=== PATIENT | male | born 1980 | race Caucasian/White ===

== ENCOUNTER 2020-06-19 04:12 | Emergency (ER) | payer OTHER ==
[2020-06-19 04:34] LABS: GLUCOSE, URINE (UA) NEGATIVE (NEGATIVE); KETONES,URINE (UA) NEGATIVE (NEGATIVE); LEUKOCYTE ESTERASE, URINE NEGATIVE (NEGATIVE); NITRITE,URINE NEGATIVE (NEGATIVE); OCCULT BLOOD,URINE LARGE (NEGATIVE); PH,URINE 5.5 PH (5.0-7.5); PROTEIN,URINE 100 mg/dL (NEGATIVE); UROBILINOGEN,URINE 1 (NORMAL) E.U./dL (NORMAL)
[2020-06-19 04:35] LABS: BASOPHILS % (AUTO) 0.4 %; EOSINOPHILS # (AUTO) 0.3 10^3/uL (0.0-0.7); EOSINOPHILS % (AUTO) 2.6 %; HCT - HEMATOCRIT 47.8 % (42.0-52.0); HGB - HEMOGLOBIN 15.9 g/dL (14.0-18.0); LYMPHOCYTES # (AUTO) 3.1 10^3/uL (1.5-3.5); LYMPHOCYTES % (AUTO) 31.2 %; MEAN CORPUSCULAR HGB CONC 33.3 g/dL (32.0-36.0); MEAN CORPUSCULAR VOLUME 87.1 fL (80.0-94.0); MEAN PLATELET VOLUME 9.5 fL (7.4-11.4); MONOCYTES # (AUTO) 1.1 10^3/uL (0.0-1.0); NEUTROPHILS # (AUTO) 5.4 10^3/uL (1.5-6.6); NEUTROPHILS % (AUTO) 54.5 %; PLT - PLATELET COUNT 355 10^3/uL (130-450); RED BLOOD COUNT 5.49 10^6/uL (4.70-6.10); RED CELL DISTRIBUTION WIDTH 13.1 % (12.0-15.0); WHITE BLOOD COUNT 9.9 x10^3/uL (4.8-10.8)
[2020-06-19 04:36] LABS: BILIRUBIN,URINE NEGATIVE (NEGATIVE); CLARITY,URINE CLEAR (CLEAR); ICTOTEST,URINE NEGATIVE
[2020-06-19] MEDS ORDERED: KETOROLAC 30 MG/ML VIAL IVP STA (04:36)
[2020-06-19] MEDS ORDERED: ONDANSETRON 4 MG/2 ML VIAL IVP STA (04:36)
[2020-06-19] MEDS ORDERED: SODIUM CHLORIDE 0.9% 1,000 ML IV STA (04:36)
[2020-06-19] MEDS ORDERED: ONDANSETRON 4 MG/2 ML VIAL ONE (04:36)
--- NOTE | 2020-06-19 04:38 | ED Physician Documentation ---
PD HPI ABD PAIN - Stated complaint Stated Complaint: AB PX - Chief complaint Chief Complaint: Abd Pain - History obtained from History obtained from: Patient - History of Present Illness Timing - onset: Enter time (0200), Today Timing - duration: Hours Timing - details: Abrupt onset, Still present Quality: Sharp, Pain Location: LUQ Radiation: Left flank Improved by: No: Vomiting, BM Worsened by: Other (nothing) Associated symptoms: Nausea, Vomiting Similar symptoms before: Has not had sx before Recently seen: Not recently seen - Additional information Additional information: 40-year-old male went to bed not feeling well and woke at 2 AM with sharp left- sided abdominal pain he had nausea and vomiting the pain is persisted and worsened and he has no modifying factors for this. He has come to the emergency department this morning vomiting and pain. Review of Systems Constitutional: denies: Fever Eyes: denies: Decreased vision Ears: denies: Ear pain Nose: denies: Congestion Throat: denies: Sore throat Cardiac: denies: Chest pain / pressure, Palpitations Respiratory: denies: Dyspnea, Cough GI: reports: Abdominal Pain, Nausea, Vomiting : reports: Hematuria. denies: Dysuria, Frequency Skin: denies: Rash Musculoskeletal: reports: Back pain. denies: Neck pain, Extremity pain Neurologic: denies: Generalized weakness, Focal weakness, Numbness PD PAST MEDICAL HISTORY - Present Medications Home Medications: Ambulatory Orders Medication Instructions Recorded Confirmed HYDROcod/ACETAM 5/325 [[place] 5/325] 1 - 2 tablet PO Q6H PRN #14 tablet 06/19/20 Sildenafil Citrate [Viagra] 50 mg PO QPM 06/19/20 06/19/20 - Allergies Allergies/Adverse Reactions: Allergies Allergy/AdvReac Type Severity Reaction Status Date / Time No Known Drug Allergies Allergy Verified 06/19/20 04:22 PD ED PE NORMAL - Vitals Vital signs reviewed: Yes (Normal) - General General: Alert and oriented X 3, Well developed/nourished, Other (40-year-old male appears to be in pain he is vomiting and moaning in pain) - HEENT HEENT: Atraumatic, PERRL, EOMI - Neck Neck: Supple, no meningeal sign, No bony TTP - Cardiac Cardiac: RRR, No murmur - Respiratory Respiratory: No respiratory distress, Clear bilaterally - Abdomen Abdomen: Normal bowel sounds, Soft, Non tender, Non distended, No organomegaly - Back Back: No CVA TTP, No spinal TTP - Derm Derm: Normal color, Warm and dry, No rash - Extremities Extremities: No deformity, No edema - Neuro Neuro: Alert and oriented X 3, melter helper 2-12 intact, No motor deficit, No sensory deficit, Normal speech Eye Opening: Spontaneous Motor: Obeys Commands Verbal: Oriented GCS Score: 15 - Psych Psych: Normal mood, Normal affect Results - Vitals Vitals: Vital Signs - 24 hr 06/19/20 06/19/20 06/19/20 04:15 04:50 05:43 Temperature 36.5 C Heart Rate 66 70 73 Respiratory 20 18 16 Rate Blood Pressure 114/66 118/78 140/77 H O2 Saturation 99 94 96 Oxygen O2 Source Room air - Labs Labs: Laboratory Tests 06/19/20 06/19/20 06/19/20 04:20 04:25 04:25 WBC 9.9 RBC 5.49 Hgb 15.9 Hct 47.8 MCV 87.1 MCH 29.0 MCHC 33.3 RDW 13.1 Plt Count 355 MPV 9.5 Neut # (Auto) 5.4 Lymph # (Auto) 3.1 [place] # (Auto) 1.1 H Eos # (Auto) 0.3 Baso # (Auto) 0.0 Absolute Nucleated RBC 0.00 Nucleated RBC % 0.0 Sodium 137 Potassium 3.6 Chloride 101 Carbon Dioxide 26 Anion Gap 10.0 BUN 18 Creatinine 0.9 Estimated GFR (MDRD) 93 Glucose 149 H Calcium 9.3 Total Bilirubin 0.6 AST 21 ALT 30 Alkaline Phosphatase 46 Total Protein 7.4 Albumin 4.3 Globulin 3.1 Albumin/Globulin Ratio 1.4 Lipase 28 Urine Color BROWN Urine Clarity CLEAR Urine pH 5.5 Ur Specific [place] >=1.030 H Urine Protein 100 H Urine Glucose (UA) NEGATIVE Urine Ketones NEGATIVE Urine Occult Blood LARGE H Urine Nitrite NEGATIVE Urine Bilirubin NEGATIVE Urine Urobilinogen 1 (NORMAL) Ur Leukocyte Esterase NEGATIVE Urine RBC TNTC H Urine WBC 0-3 Ur Squamous Epith Cells NONE SEEN Urine Bacteria Rare Urine Mucus Marked Strands Ur Microscopic Review INDICATED Urine Culture Comments NOT INDICATED - Rads (name of study) CT abdomen and pelvis without Radiology: Prelim report reviewed (Impression: Mild left-sided hydroureteronephrosis with a distal left ureteral calculus measuring 4 mm. Mild hepatic steatosis.), EMP read indepedently, See rad report Procedures - Bedside sono Bedside sono by EMP: With use of bedside ultrasound the left kidney is imaged it is sonographically nontender there is evidence of hydronephrosis. This actually appears similar to what is present on the right side as well. PD MEDICAL DECISION MAKING - ED course Complexity details: reviewed results, re-evaluated patient, considered differential, d/w patient ED course: Previously well 40-year-old male with acute left flank pain without modifying factors appears to be in severe pain when he arrived she is vomiting he is administered Zofran and Toradol as well as intravenous saline and a CT scan of the abdomen pelvis is obtained which shows a 4 mm distal stone. Shortly after arrival back to the emergency department room the patient has resolution of his pain. Departure - Departure Disposition: 01 Home, Self Care Clinical Impression: Ureterolithiasis Condition: Stable Instructions: ED Stone Renal Passed, ED Stone Renal W Colic Follow-Up: [facility] [Provider Group] Prescriptions: HYDROcod/ACETAM 5/325 [[place] 5/325] 1 - 2 tablet PO Q6H PRN #14 tablet PRN Reason: Pain Comments: Today it appears there was a 4 mm stone in the distal ureter on your study. Being that your symptoms have now resolved it is likely the stone has passed into the bladder and should not be an issue to get out. Occasionally stones will migrate back up the ureter and I am giving you a prescription for some pain medication in case this stone is still in the ureter. The expectation is that it will pass without difficulty. Drink lots of extra fluids.
[2020-06-19 04:40] LABS: BACTERIA,URINE Rare /HPF (None Seen); MUCUS,URINE Marked Strands; RBC,URINE TNTC /HPF (0-5); SQUAMOUS EPITHELIAL CELL,UR NONE SEEN (<= Few); WBC,URINE 0-3 /HPF (0-3)
[2020-06-19 04:48] LABS: ALBUMIN 4.3 g/dL (3.2-5.5); ALBUMIN/GLOBULIN RATIO 1.4 (1.0-2.2); BILIRUBIN,TOTAL 0.6 mg/dL (0.2-1.0); CALCIUM 9.3 mg/dL (8.5-10.3); CREATININE 0.9 mg/dL (0.6-1.2); POTASSIUM 3.6 mmol/L (3.5-5.0); TOTAL PROTEIN 7.4 g/dL (6.7-8.2)
[2020-06-19] MEDS ORDERED: HYDROmorphone 1 MG/ML CARPUJECT IVP STA (06:05)
[2020-06-19 06:32] VITALS: BP 126/76
--- NOTE | 2020-06-19 08:15 | CT Report ---
PROCEDURE: Abdomen/Pelvis WO INDICATIONS: left flank pain TECHNIQUE: Noncontrast 5 mm thick sections acquired from the diaphragms to the symphysis. 5 mm coronal and sagi ttal reformats were then performed. For radiation dose reduction, the following was used: automated exposure control, adjustment of mA and/or kV according to patient size. COMPARISON: None. FINDINGS: Image quality: Excellent. ABDOMEN: Lung bases: Lung bases are clear except for a 4 mm nodule noted at the lateral left costophrenic sul cus, series 4 image 29.. Heart size is normal. Solid organs: Liver and spleen are normal in size. Gallbladder normal. Pancreas is normal in conto urs. No adrenal nodules. Kidneys are normal in size, without right-sided hydronephrosis or nephroli thiasis. There is mild hydronephrosis on the left associated with a 3 mm distal left ureteral stone Peritoneum and bowel: Unenhanced bowel loops demonstrate normal wall thickness and caliber. No free fluid or air. Nodes and vessels: No retroperitoneal or mesenteric adenopathy by size criteria. Aorta and inferior vena cava are normal in caliber. Miscellaneous: No ventral hernias. PELVIS: Genitourinary: Bladder wall thickness is normal. Miscellaneous: No inguinal hernias or adenopathy. Bones: No suspicious bony lesions. No vertebral body compression fractures. IMPRESSION: Mild left-sided hydronephrosis and hydroureter due to a 3 mm far distal left ureteral stone. Incidental note is made of a 4 mm left deep costophrenic sulcus lateral pulmonary nodule, in this you ng patient. The Fleischner Society guidelines for follow-up of a single pulmonary nodule less than 6 mm in diameter would be no routine follow-up in the setting of the low risk patient in a high risk pa tient and optional noncontrast CT scan in 12 months could be obtained. Reviewed by: Husam Vera MD on 06/19/2020 8:13 AM PDT Approved by: Husam Vera MD on 06/19/2020 8:13 AM PDT Station ID: [id number]
== END 2020-06-19 06:30 | disposition home or self-care (01) ==
LOC: ED 04:12
DX: N13.2 Hydronephrosis with renal and ureteral calculous obstruction (principal)
CPT/HCPCS: 36415; 74176; 80053; 81001; 83690; 85025; 96374; 96375; 99284; J1170; 81003; 87086

== ENCOUNTER 2021-04-22 20:18 | Outpatient (CLI) | payer OTHER | END 2021-04-22 20:19 | disposition EMS.NT | LOC: EMS 20:18 | DX: R55 Syncope and collapse (principal) ==

== ENCOUNTER 2021-04-23 10:39 | Emergency (ER) | payer OTHER ==
[2021-04-23 11:31] LABS: BASOPHILS % (AUTO) 0.6 %; EOSINOPHILS # (AUTO) 0.2 10^3/uL (0.0-0.7); EOSINOPHILS % (AUTO) 2.9 %; HCT - HEMATOCRIT 46.4 % (42.0-52.0); HGB - HEMOGLOBIN 15.7 g/dL (14.0-18.0); LYMPHOCYTES % (AUTO) 27.6 %; MEAN CORPUSCULAR HEMOGLOBIN 29.2 pg (27.0-31.0); MEAN CORPUSCULAR HGB CONC 33.8 g/dL (32.0-36.0); MEAN CORPUSCULAR VOLUME 86.2 fL (80.0-94.0); MEAN PLATELET VOLUME 10.1 fL (7.4-11.4); MONOCYTES # (AUTO) 0.8 10^3/uL (0.0-1.0); NEUTROPHILS # (AUTO) 4.1 10^3/uL (1.5-6.6); NEUTROPHILS % (AUTO) 57.6 %; PLT - PLATELET COUNT 277 10^3/uL (130-450); RED BLOOD COUNT 5.38 10^6/uL (4.70-6.10); RED CELL DISTRIBUTION WIDTH 12.8 % (12.0-15.0); WHITE BLOOD COUNT 7.2 x10^3/uL (4.8-10.8)
[2021-04-23 11:39] LABS: ALBUMIN/GLOBULIN RATIO 1.2 (1.0-2.2); BILIRUBIN,TOTAL 0.9 mg/dL (0.2-1.0); CALCIUM 9.4 mg/dL (8.5-10.3); CREATININE 0.9 mg/dL (0.6-1.2); TOTAL PROTEIN 7.3 g/dL (6.7-8.2)
--- NOTE | 2021-04-23 12:31 | ED Physician Documentation ---
History of Present Illness - Stated complaint Stated Complaint: FALL/HEAD INJ - Chief complaint Chief Complaint: Neuro - History obtained from History obtained from: Patient - Additonal information Additional information: The patient comes to the emergency department with chief complaint of dizziness, headache, and visual changes after a syncopal episode yesterday in which he hit his head. The patient states that he takes hydroxyzine every day and had taken his late afternoon dose, when he also took a dose of Viagra. He states that several hours later, he had intercourse with his and afterward, felt a little dizzy and out of breath. The patient states that this did not seem out of ordinary for him, considering the degree of exertion during intercourse. He went to the bathroom and states he started to feel quite lightheaded. He took a deep breath and this did not help and then suddenly, he found himself waking up on the floor. Patient states that his told him she had found him slumped against the corner of the wall in the shower. At that time, EMS was called and came and evaluated the patient with EKG and blood pressure and blood sugar evaluation and felt that the patient did not need to be transported unless he really wanted to. Patient stated he wished not to be transported, so was not evaluated at that time in the hospital. He states this morning, he was driving to work and felt tired, but had not slept slept well last night. He states that he has had the feeling go away when he gets to work, but that he just kept feeling "out of it" and noticed that he had developed a headache the posterior superior aspect of his head. He states his eyes are sensitive to light but denies any blurry vision or other visual deficits. He denies any focal neurologic deficits of any other kind. Patient does not feel like he was injured in any other way. He does not recall having any chest pain, or any sense of palpitations just before or after the syncopal episode. He has not been ill with anything. The patient denies history of syncopal episodes. He states he works out every day and is known to be fairly healthy otherwise. No other complaints at this time. Review of Systems Ten Systems: 10 systems reviewed and negative Constitutional: reports: Reviewed and negative Eyes: reports: Photophobia Ears: reports: Reviewed and negative Nose: reports: Reviewed and negative Throat: reports: Reviewed and negative Cardiac: reports: Reviewed and negative Respiratory: reports: Reviewed and negative GI: reports: Reviewed and negative : reports: Reviewed and negative Skin: reports: Reviewed and negative Musculoskeletal: reports: Reviewed and negative Neurologic: reports: Syncope, Headache, Head injury, LOC Psychiatric: reports: Reviewed and negative Endocrine: reports: Reviewed and negative Immunocompromised: reports: Reviewed and negative PD PAST MEDICAL HISTORY - Past Medical History Past Medical History: Yes Respiratory: Sleep apnea - Past Surgical History Past Surgical History: No - Present Medications Home Medications: Ambulatory Orders Medication Instructions Recorded Confirmed HYDROcod/ACETAM 5/325 [[place] 5/325] 1 - 2 tablet PO Q6H PRN #14 tablet 06/19/20 Sildenafil Citrate [Viagra] 50 mg PO QPM 06/19/20 06/19/20 - Allergies Allergies/Adverse Reactions: Allergies Allergy/AdvReac Type Severity Reaction Status Date / Time No Known Drug Allergies Allergy Verified 04/23/21 10:49 - Social History Does the pt smoke?: Yes Smoking Status: Current every day smoker Does the pt drink ETOH?: Yes Does the pt have substance abuse?: No - Immunizations Immunizations are current?: Yes - POLST Patient has POLST: No PD ED PE NORMAL - Vitals Vital signs reviewed: Yes - General General: Alert and oriented X 3, No acute distress, Well developed/nourished, Other - HEENT HEENT: PERRL, EOMI, Moist mucous membranes, Other (Small contusion without bony deformity or scalp edema at the posterior crown of the patient's head.) - Neck Neck: Supple, no meningeal sign, No bony TTP - Cardiac Cardiac: RRR, No murmur, Strong equal pulses - Respiratory Respiratory: No respiratory distress, Clear bilaterally - Abdomen Abdomen: Soft, Non tender, Non distended - Back Back: No spinal TTP - Derm Derm: Normal color, Warm and dry, No rash - Extremities Extremities: No deformity, No edema - Neuro Neuro: Alert and oriented X 3, dietary director 2-12 intact, Normal speech - Psych Psych: Normal mood, Normal affect Results - Vitals Vitals: Vital Signs - 24 hr 04/23/21 04/23/21 04/23/21 10:45 11:21 12:51 Temperature 36.4 C L 36.7 C Heart Rate 62 59 L 66 Respiratory 16 14 17 Rate Blood Pressure 144/85 H 139/74 H O2 Saturation 100 98 98 Oxygen O2 Source Room air - EKG (time done) 1100 Rate: Rate (enter#) (58) Rhythm: NSR [place]: Normal Intervals: Normal ME QRS: Normal Ischemia: Normal ST segments. No: T wave inversion Compare to prior EKG: Old EKG unavailable Computer interpretation: Agree with computer - Labs Labs: Laboratory Tests 04/23/21 04/23/21 04/23/21 11:14 11:14 11:14 WBC 7.2 RBC 5.38 Hgb 15.7 Hct 46.4 MCV 86.2 MCH 29.2 MCHC 33.8 RDW 12.8 Plt Count 277 MPV 10.1 Neut # (Auto) 4.1 Lymph # (Auto) 2.0 Real # (Auto) 0.8 Eos # (Auto) 0.2 Baso # (Auto) 0.0 Absolute Nucleated RBC 0.00 Nucleated RBC % 0.0 Sodium 135 Potassium 4.0 Chloride 103 Carbon Dioxide 23 Anion Gap 9.0 BUN 16 Creatinine 0.9 Estimated GFR (MDRD) 93 Glucose 102 H Calcium 9.4 Total Bilirubin 0.9 AST 21 ALT 27 Alkaline Phosphatase 48 Troponin I High Sens 8.7 Total Protein 7.3 Albumin 4.0 Globulin 3.3 Albumin/Globulin Ratio 1.2 Lipase 30 - Rads (name of study) head CT Radiology: Final report received, EMP read indepedently, See rad report (neg) PD MEDICAL DECISION MAKING - ED course Complexity details: reviewed results, re-evaluated patient, considered differential, d/w patient ED course: The patient was worked up with EKG, which was unremarkable, and CT scan of the head, which was also unremarkable.We have discussed home management of the symptoms, as well as the usual indications for return. Departure - Departure Disposition: 01 Home, Self Care Clinical Impression: Episode of syncope Qualifiers: Syncope type: vasovagal syncope Qualified Code(s): R55 - Syncope and collapse Closed head injury Qualifiers: Encounter type: initial encounter Qualified Code(s): S09.90XA - Unspecified injury of head, initial encounter Condition: Stable Instructions: ED Head Injury Closed, ED Syncope Vasovagal Comments: Your EKG and head CT look good. There is no evidence of bleeding in your brain or a bad heart rhythm that would have contributed to your fainting episode. Most likely, the episode was due to the combined effects of the Viagra the hydroxyzine. Please try to take these separately, as you have done in the past. If you do have another episode of feeling severely dizzy or faint, please get on the floor immediately to avoid falling and injuring yourself. If you have further episodes like this, you should talk to your primary doctor about further management.
[2021-04-23 12:52] VITALS: BP 139/74
--- NOTE | 2021-04-23 12:58 | CT Report ---
PROCEDURE: HEAD WO INDICATIONS: fall/syncope/head injury/headache/dizzy TECHNIQUE: Noncontrast 4.5 mm thick angled axial sections acquired from the foramen magnum to the vertex. For r adiation dose reduction, the following was used: automated exposure control, adjustment of mA and/or kV according to patient size. COMPARISON: None. FINDINGS: Image quality: Excellent. CSF spaces: Basal cisterns are patent. No extra-axial fluid collections. Ventricles are normal in size and shape. Brain: No midline shift. No intracranial masses or hemorrhage. Navarro-white matter interface is norm al. Skull and face: Calvarium and visualized facial bones are intact, without suspicious lesions. Sinuses: Visualized sinuses and mastoids are clear. IMPRESSION: 1. No acute intracranial process. Reviewed by: Gloria Navarro MD on 04/23/2021 12:57 PM [facility] Approved by: Gloria Navarro MD on 04/23/2021 12:57 PM [facility] Station ID: [id number]
== END 2021-04-23 13:03 | disposition home or self-care (01) ==
LOC: ED 10:39
DX: S09.90XA Unspecified injury of head, initial encounter (principal); W19.XXXA Unspecified fall, initial encounter; Y93.89 Activity, other specified; Y92.002 Bathroom of unspecified non-institutional (private) residence as the place of occurrence of the external cause; F17.200 Nicotine dependence, unspecified, uncomplicated
CPT/HCPCS: 36415; 80053; 83690; 84484; 85025; 93005; 99284

== ENCOUNTER 2021-11-20 15:14 | Outpatient (CLI) | payer OTHER ==
[2021-11-20 16:08] VITALS: BP 142/78
--- NOTE | 2021-11-20 16:08 | SLEEP CARE CONSULTATION ---
Information from patient questionnaire entered by Moshe Rowley. I have reviewed and concur with the information entered by Moshe Rowley. This document represents the service I personally performed and the decisions made by me, Jennifer Calloway ARNP. History of Present Illness Service Date and Time: 11/20/2021 1514 Reason for Visit: New patient, Previously diagnosed sleep apnea, sleep apnea on CPAP therapy Chief Complaint: reports: Unrefreshed sleep, Snoring, Observed pauses in breathing, Other (UPDATE SUPPLIES) Date of Onset: 2011 Usual bedtime: 0100 Time it takes to fall asleep: 2 MINUTES UNLESS ANXIETY ACTS UP Snores at night: Yes Observed to quit breathing while asleep: Yes Sleeps alone due to snoring: No Number of times waking at night: 1 Reasons for waking at night: reports: Bathroom Toss, Turn, or Twitch while sleeping: Yes Recalls having dreams: Yes Usually gets out of bed at: 9-10AM Feels refreshed in the morning: No Morning headache: Yes (SOMETIMES) Sleepy or fatigued during the day: Yes Ever fallen asleep while driving: No Takes day naps: Yes (SOMETIMES) Dreams during day naps: No Prior sleep studies: Yes Year and Where: 2012 [facility] Additional HPI information: TONI IYER was previously diagnosed with documented as overall mild to severe in REM sleep, AHI unknown, obstructive sleep apnea-hypopnea syndrome and comes in today to establish care for CPAP therapy. - Parasomnia Symptoms Ever been unable to move upon waking from sleep: No Walks in sleep: No Talks in sleep: No Ever acted out dreams in sleep: No Ever felt weak in the knees when startled or emotional: No Bothered by creepy, crawly, restless sensations in legs: No Problems with memory or concentration: Yes CPAP Compliance Data - Data Reviewed with Patient Average duration of nightly device use: 7 HOURS, 43 MINUTES Compliance rate %: 96 (05/24/21 TO 11/19/21; 172/180 days used) Current pressure setting (cmH2O): 10-18 Average residual AHI: 0.4 Compliance data discussion: He has a ResMed Airsense 10 CPAP machine and gets his supplies from [employer]. He is using a medium full face mask. He does have a back up mask if needed. He last changed his cushion 2 weeks ago. Subjective Patient concerns: reports: dry mouth, nose, throat (sometimes). denies: aerophagia, mask discomfort, air blowing in eyes, mask leak noise, condensation in mask/hose, nasal congestion, epistaxis Observed to snore while using device: No Current pressure setting perceived as: comfortable On therapy, patient: reports: sleeping better, awakening more refreshed, being more awake and alert during the day, more rested overall. denies: drowsiness while driving Initial [place] Sleepiness Scale score: 11 (10/31/21) Past Medical History Past Medical History: reports: Other (some higher blood pressure tendencies in last year but not diagnosed with HTN) Social History The patient's occupation is a AM. Patient is and lives in [place]. Have you smoked in the past 12 months: No Cigarettes per day (20/pack): 20 Years of smokin Quit date: JUNE 2013 Smoking Pack Years: 17.0 Alcohol use: Yes Alcohol amount and frequency: 4-5 PER [facility] Caffeine use: Yes Caffeine amount and frequency: 16OZ DAILY Family History Family history of sleep disordered breathing: Yes Family Hx Sleep Apnea: Father: Snoring (UNCLE), Sleep apnea - Treated (UNCLE), Other: Snoring Allergies and Home Medications Known drug allergies: No Drug allergies reviewed: Yes (NKDA) Home medication list reviewed: Yes Allergy and home medication list: Allergies No Known Drug Allergies Allergy (Verified 04/23/21 10:49) Medications: Hydroxyzine, prn Sildenafil, prn Review of Systems Weight gain over past 5 years: 20 Weight loss over past 5 years: 20 Cardiovascular: reports: high blood pressure Gastrointestinal: reports: heartburn Neurological: reports: headaches, disorientation Psychiatric: reports: anxiety Ear/Nose/Throat: reports: nasal congestion, wisdom teeth removed. denies: tonsillectomy Endocrine: reports: sluggishness, increased urination, unexplained weakness Musculoskeletal: reports: joint pain, neck pain, back pain, joint swelling, mobility problems Immunologic: denies: allergies to food or environment Physical Exam Vital signs obtained and entered by: KELECHI GUTIERREZ Blood Pressure: 142/78 (LEFT ARM ) Cuff size: regular Heart Rate: 74 O2 Saturation: 96 Height: 5 ft 11 in Weight: 236 lb Body Mass Index: 32.9 BMI Classification: Obese Neck circumference: 18 (INCHES) Heart: regular rate and rhythm Lungs: clear bilaterally Impression and Plan 1. Obstructive Sleep Apnea-Hypopnea Syndrome, mild, with good treatment compliance and good apnea control. On CPAP therapy, the patient has better sleep quality and is more rested overall. Patient is here to establish care so that he can get an updated prescription for supplies. Patient brought in chart notes that document mild obstructive sleep that is severe during REM sleep. He did not bring in a copy of his sleep study. We will request a copy from previous sleep provider. He gets his supplies from a DME called [employer]. I will make a prescription for supplies to be sent to [employer] once I have a confirmation of severity through the sleep study. Patient's apnea severity and rationale for treatment to reduce apnea, improve sleep quality and reduce cardiovascular and cerebrovascular events was reviewed. We will follow up in 1 year. * Continue auto CPAP pressure at 10-18 cmH2O * Obtain copy of sleep study to verify diagnosis severity * Update supplies * Notify me if snoring with mask or feeling that the pressure is too much or too little * Attempt to lose weight * Call this office if any problems using CPAP * Return for follow up in 1 year, or sooner if concerns arise Counseling Topics: Spare mask, Weight loss health impact Visit Type: In Office Time Spent with Patient (minutes): 30 Provider Statement: I spent 100% of the Face to Face Visit with the patient with greater than 50% spent counseling the patient and coordination of care.
== END 2021-11-20 15:15 | disposition home or self-care (01) ==
LOC: SC 15:14
PROVIDERS: ATTEND Nurse Practitioner Family
DX: G47.33 Obstructive sleep apnea (adult) (pediatric) (principal); E66.9 Obesity, unspecified; Z68.32 Body mass index [BMI] 32.0-32.9, adult; Z87.891 Personal history of nicotine dependence
CPT/HCPCS: 99203; 99212

== ENCOUNTER 2022-01-03 15:58 | Outpatient (CLI) | payer OTHER ==
--- NOTE | 2022-01-04 09:28 | MRI Report ---
PROCEDURE: THORACIC SPINE WO INDICATIONS: LOW BACK AND THORACIC BACK PAIN TECHNIQUE: Noncontrast sagittal T1 spine echo and T2 fast spin echo, sagittal STIR, axial T1 and T2 fast spin ec ho through the thoracic spine. COMPARISON: Correlation is made with the accompanying lumbar MRI, 01/03/2022. Correlation is also ma de with the overlapping portions of the abdomen and pelvis CT, 06/19/2020. FINDINGS: Image quality: Motion artifact is noted. Alignment and Curvature: There is normal bony alignment. Bone Marrow: Marrow is of normal overall signal. No acute vertebral body compression fractures. Spinal Cord: Visualized spinal cord is normal in size and signal. Paraspinous Soft Tissues: No paravertebral masses. Miscellaneous: On axial images, central canal and foramina appear widely patent at all scanned level s. IMPRESSION: Thoracic spine MRI within normal limits. Reviewed by: Ruy Badillo MD on 01/04/2022 8:26 AM [facility] Approved by: Ruy Badillo MD on 01/04/2022 8:26 AM [facility] Station ID: [id number]
--- NOTE | 2022-01-04 09:31 | MRI Report ---
PROCEDURE: LUMBAR SPINE WO INDICATIONS: LOW BACK AND THORACIC BACK PAIN TECHNIQUE: Noncontrast sagittal T1 spin echo and T2 fast echo, sagittal STIR, axial T1 and T2 fast spin echo thr ough the lumbar spine. In cases with scoliosis, additional coronal T2 fast spin echo may be performe d. COMPARISON: Correlation is made with the accompanying thoracic spine MRI, 01/03/2022. Correlation is also made with the overlapping portions of the abdomen and pelvis CT, 06/19/2020. FINDINGS: Image quality: Excellent. Alignment and Curvature: There is normal bony alignment. Bone Marrow: Marrow is of normal overall signal. No acute vertebral body compression fractures. Spinal Cord: Conus medullaris terminates at the L1 level. Visualized cord demonstrates normal signa l and size. Paraspinous Soft Tissues: No paravertebral masses. T12-L1: Normal in appearance. L1-L2: Normal in appearance. L2-L3: Normal in appearance. L3-L4: The disc height and disc signal are well preserved. Mild disc bulge is seen. Mild facet hypertrophy is seen. There is mild to moderate bilateral neuroforaminal narrowing seen, left worse t boggs right. Mild central canal narrowing is seen. L4-L5: The disc height and disc signal are well preserved. Mild disc bulge is seen. Mild facet hypertrophy is seen. Moderate bilateral neuroforaminal narrowing is seen at this level. Minimal to m ild central canal narrowing is seen. L5-S1: The disc height and disc signal are well preserved. Minimal disc bulge is seen. Mild facet h ypertrophy is seen, left worse than right. There is mild right-sided and no left-sided neuroforaminal narrowing. No central canal narrowing is seen. IMPRESSION: Lower lumbar spine degenerative changes are seen, which are worst at the L4-L5 level, wh ere there is moderate bilateral neuroforaminal narrowing. Reviewed by: Ruy Badillo MD on 01/04/2022 8:30 AM [place] Approved by: Ruy Badillo MD on 01/04/2022 8:30 AM [facility] Station ID: [id number]
== END 2022-01-03 15:59 | disposition home or self-care (01) ==
LOC: DI 15:58
PROVIDERS: ATTEND Physician Assistant
DX: M54.6 Pain in thoracic spine (principal); G89.29 Other chronic pain; M47.816 Spondylosis without myelopathy or radiculopathy, lumbar region; M48.061 Spinal stenosis, lumbar region without neurogenic claudication